=== PATIENT | female | born 1980 | race Two or more races ===

== ENCOUNTER 2020-10-17 09:19 | Emergency (ER) | payer MEDICAID ==
[~2020-10-17] VITALS: Ht 162.6 cm; Wt 72.6 kg
--- NOTE | 2020-10-17 09:19 | NUR ---
PT BIB SELF C/O ABDOMINAL PAIN AND MED CLEARANCE FOR VOLUNTARY ADMISSION TO [facility]. PT IS AAOX4, NOT IN RESPIRATORY DISTRESS, V/S STABLE, KEPT RESTED AND COMFORTABLE. WILL CONTINUE TO MONITOR. SITTER AT BEDSIDE.
--- NOTE | 2020-10-17 09:45 | NUR ---
PT SEEN AND EXAMINED BY .
--- NOTE | 2020-10-17 09:45 | NUR ---
URINE SPECIMEN COLLECTED AND SENT TO LAB.
--- NOTE | 2020-10-17 09:58 | NUR ---
ER PHLEB AT BEDSIDE FOR BLOOD DRAW.
[2020-10-17] MEDS ORDERED: ACETAMINOPHEN ES 500 MG TABLET ONE (09:59)
[2020-10-17] MEDS ORDERED: ACETAMINOPHEN ES 500 MG TABLET PO ONE (10:00)
[2020-10-17 10:21] LABS: BASOPHILS # (AUTO) 0.1 K/uL (0.0-0.2); BASOPHILS % (AUTO) 0.3 % (0.0-2.0); EOSINOPHILS % (AUTO) 0.4 % (0.0-6.0); HEMATOCRIT 32 % (33-45); HEMOGLOBIN 10.8 g/dL (11.5-14.8); LYMPHOCYTES % (AUTO) 13.6 % (20.0-44.0); MEAN CORPUSCULAR HGB CONC 33 g/dl (31.0-36.0); MEAN CORPUSCULAR VOLUME 86 fL (82-100); MONOCYTES # (AUTO) 0.9 K/uL (0.1-1.30); MONOCYTES % (AUTO) 5.8 % (2.0-12.0); NEUTROPHILS # (AUTO) 11.9 K/uL (1.8-8.9); NEUTROPHILS % (AUTO) 79.9 % (43.0-81.0); PLATELET COUNT (AUTO) 354 K/uL (150-450); RED BLOOD CELL COUNT(AUTO) 3.74 MIL/uL (4.0-5.2); WHITE BLOOD COUNT (AUTO) 14.8 K/uL (4.3-11.0)
[2020-10-17 10:33] LABS: BILIRUBIN,URINE NEGATIVE (NEGATIVE); COLOR,URINE YELLOW (YELLOW); LEUKOCYTE ESTERASE ,URINE NEGATIVE (NEGATIVE); NITRITE, URINE NEGATIVE (NEGATIVE); PROTEIN,URINE 30 mg/dl (NEGATIVE); UGLUCOSE NEGATIVE (NEGATIVE); UROBILINOGEN,URINE 0.2 EU/dL (0.2)
[2020-10-17 10:38] LABS: ALBUMIN 3.8 g/dL (3.4-5.0); BILIRUBIN,DIRECT 0.2 mg/dL (0.0-0.2); BILIRUBIN,TOTAL 0.5 mg/dL (0.2-1.0); CALCIUM, SERUM 8.7 mg/dL (8.5-10.1); POTASSIUM 3.1 mmol/L (3.5-5.1); TOTAL PROTEIN, SERUM 7.5 g/dL (6.4-8.2)
[2020-10-17 11:24] LABS: BACTERIA,URINE Few /HPF (None Seen); RBC,URINE 0-2 /HPF (0-2); SQUAMOUS EPITHELIAL CELL,UR Few /HPF (None Seen)
[2020-10-17] MEDS ORDERED: POTASSIUM CHLORIDE 20 MEQ TAB.PRT.SR PO ONE ×2 (11:58→12:00)
--- NOTE | 2020-10-17 12:18 | NUR ---
FAXED [facility] INTAKE WITH [facility] AND CLINICALS
--- NOTE | 2020-10-17 17:00 | NUR ---
PT STATED SHE WANTS TO BE DISCHARGED. SHE IS NOT SUICIDAL OR HOMICIDAL AND WILL PICK HER UP. AWARE.
--- NOTE | 2020-10-17 17:44 | NUR ---
Patient does not wish to proceed with medical care recommended by Dr. Beach. Patient given information related to possible complications, up to and including , which could occur as a result of leaving the hospital at this time. Patient verbalizes understanding of risks involved due to leaving against medical advice. Patient has signed AMA form.
[2020-10-17 17:45] VITALS: BP 114/52
== END 2020-10-17 17:45 | disposition left against medical advice (07) ==
LOC: ER 09:22
DX: F29 Unspecified psychosis not due to a substance or known physiological condition (principal); R10.9 Unspecified abdominal pain; I10 Essential (primary) hypertension; D64.9 Anemia, unspecified; E87.6 Hypokalemia; Z20.822 Contact with and (suspected) exposure to COVID-19; E11.9 Type 2 diabetes mellitus without complications
CPT/HCPCS: 36415; 80048; 80076; 80143; 80307; 80320; 81001; 84703; 85025; 87426; 99283; C9803; G0480

== ENCOUNTER 2020-10-17 22:50 | Emergency (ER) | payer MEDICAID ==
[~2020-10-17] VITALS: Ht 162.6 cm; Wt 71.2 kg
--- NOTE | 2020-10-17 23:55 | NUR ---
RECEIVED CALL FROM ART WITH [facility] INTAKE, STATES PT HAS BED AVAILABLE AT [facility], REQUESTING UPDATED FACESHEET AND MEDICAL CLEARANCE.
[2020-10-18] MEDS ORDERED: ACETAMINOPHEN ES 500 MG TABLET PO ONE (01:00)
[2020-10-18] MEDS ORDERED: ACETAMINOPHEN ES 500 MG TABLET ONE (01:09)
--- NOTE | 2020-10-18 07:25 | NUR ---
FAXED CLINICALS TO [facility] [phone]
--- NOTE | 2020-10-18 10:01 | NUR ---
PT ACCEPTED TO [facility] [place] UNDER DR. TERRAZAS CALL [phone] DESMOND FOR REPORT.
--- NOTE | 2020-10-18 10:07 | NUR ---
TRANSPORT ARRANGED WITH [facility] WITH ETA OF 30 MINS.
[2020-10-18 12:00] VITALS: BP 128/81
--- NOTE | 2020-10-18 12:27 | NUR ---
patient got picked up by private ambulance going [facility] distress.
== END 2020-10-18 12:27 ==
LOC: ER 22:50
DX: R45.851 Suicidal ideations (principal); R10.9 Unspecified abdominal pain; F32.9 Major depressive disorder, single episode, unspecified; I10 Essential (primary) hypertension; E11.9 Type 2 diabetes mellitus without complications; F17.200 Nicotine dependence, unspecified, uncomplicated